=== PATIENT | female | born 1965 | race African-American/Black ===

== ENCOUNTER 2023-12-25 05:54 | Observation (INO) | payer BC ==
[2023-12-22 10:31] LABS: BASOPHILS % 0.5 % (0.0-1.0); EOSINOPHILS # (AUTO) 0.4 (0.0-0.4); EOSINOPHILS % 4.2 % (0.0-6.0); HEMATOCRIT 39.7 % (34.2-44.1); LYMPHOCYTES # (AUTO) 2.6 (1.0-3.2); LYMPHOCYTES % 29.5 % (18.0-39.1); MEAN CORPUSCULAR HGB CONC 32.7 g/dL (31-35); MEAN CORPUSCULAR VOLUME 94.7 fL (81-99); MONOCYTES # (AUTO) 0.7 (0.2-0.8); MONOCYTES % 8.2 % (4.4-11.3); NEUTROPHILS % 57.4 % (38.7-80.0); PLATELET COUNT 323 x10e3/uL (140-360); RED BLOOD COUNT 4.19 x10e6/uL (3.6-5.1); RED CELL DISTRIBUTION WIDTH 13.9 % (11.7-14.4); WHITE BLOOD COUNT 8.76 x10e3/uL (4.8-10.8)
[2023-12-22 10:49] LABS: ANION GAP 15.6 mmol/L (8-16); CALCIUM 9.3 mg/dL (8.4-10.2); CREATININE, SERUM 0.81 mg/dL (0.57-1.11); POTASSIUM 4.6 mmol/L (3.5-5.1)
[~2023-12-25 05:54] MED LIST: ALBUTEROL0.63 MG/3 INH; AMBIEN10 MG PO; BREO ELLIPTA INH; CLOPIDOGREL75 MG PO; CYCLOBENZAPRINE10 MG PO; FAMOTIDINE20 MG PO; GABAPENTIN300 MG PO; HYDRALAZINE HCL10 MG PO; HYDROCHLOROTHIA25 MG PO; ISOSORBIDE MONO30 MG PO; MONTELUKAST SOD10 MG PO; OMEPRAZOLE40 MG PO; PANTOPRAZOLE SO40 MG PO; SIMVASTATIN40 MG PO; ULTRAM50 MG PO; VERAPAMIL ER120 MG PO; ZOFRAN8 MG PO
[2023-12-25] MEDS: CELECOXIB 200 MG CAP ONE (06:38)
[2023-12-25] MEDS: LACTATED RINGER'S 1,000 ML ONE (06:38)
[2023-12-25] MEDS: CEFAZOLIN SODIUM 2 GM ONE (06:39)
[2023-12-25] MEDS: DEXAMETHASONE SOD PHOS 10 MG/1 ML VIAL ONE (06:39)
[2023-12-25] MEDS: GABAPENTIN 300 MG CAP ONE (06:39)
[2023-12-25] MEDS ORDERED: ROPIVACAINE 246.25 MG, EPINEPHRINE HCL 1:1000 1ML 0.5 MG, CLONIDINE HCL 0.08 MG, KETORO... INJ ONE (06:45)
[2023-12-25] MEDS ORDERED: Vancomycin IV 500 MG ONE (07:37)
[2023-12-25] MEDS ORDERED: TRANEXAMIC ACID 20 ML ONE (07:37)
[2023-12-25] MEDS ORDERED: FENTANYL CITRATE/PF 100MCG/2 ML INJ ONE ×2 (08:05→13:31)
[2023-12-25] MEDS ORDERED: MIDAZOLAM HCL 2 MG/2 ML VIAL ONE (08:06)
[2023-12-25] MEDS ORDERED: SODIUM CHLORIDE 0.9% 500ML 500 ML ONE (08:22)
[2023-12-25] MEDS ORDERED: ONDANSETRON HCL INJ 2MG/ML 2ML 2 MG/ML VIAL IV PRN (09:45)
[2023-12-25] MEDS ORDERED: DIPHENHYDRAMINE HCL INJ 50 MG/ML VIAL IV PRN (09:45)
[2023-12-25] MEDS ORDERED: SODIUM CHLORIDE 0.9% 1000ML 1,000 ML IV SCH (09:45)
[2023-12-25] MEDS ORDERED: DOCUSATE SODIUM 100 MG CAP PO PRN (09:45)
[2023-12-25] MEDS ORDERED: HYDROCODONE/APAP 7.5MG-325MG 1 EA TAB PO PRN (09:45)
[2023-12-25] MEDS: FENTANYL CITRATE/PF 100MCG/2 ML INJ ONE (10:29)
[2023-12-25] MEDS ORDERED: HYDROCODONE/APAP 5MG-325MG TAB PO ONE (11:25)
[2023-12-25] MEDS: HYDROCODONE/APAP 5MG-325MG TAB PO PRN (11:25)
[2023-12-25] MEDS ORDERED: HYDROCODONE/APAP 5MG-325MG TAB ONE (11:30)
[2023-12-25] MEDS ORDERED: SODIUM CHLORIDE 0.9% 100 ML ONE (12:05)
[2023-12-25] MEDS ORDERED: METHOCARBAMOL 100MG/1ML 10ML VIAL ONE (12:36)
[2023-12-25] MEDS ORDERED: FAMOTIDINE 20 MG/2 ML VIAL IV ONE (12:36)
[2023-12-25] MEDS ORDERED: ACETAMINOPHEN 1000 MG/100 ML IV ONE (12:36)
[2023-12-25] MEDS ORDERED: SEVOFLURANE INHAL SOLN 250 ML PEN BTL ONE (12:36)
[2023-12-25] MEDS ORDERED: DEXAMETHASONE SOD PHOS INJ 4 MG/ML SDV ONE (12:36)
[2023-12-25] MEDS ORDERED: PROPOFOL IV EMULSION 10 MG/ML 20 ML VIAL ONE (12:36)
[2023-12-25] MEDS ORDERED: ONDANSETRON HCL INJ 2MG/ML 2ML 2 MG/ML VIAL ONE (12:36)
[2023-12-25] MEDS ORDERED: DEXMEDETOMIDINE HCL 200 MCG/2 ML VIAL ONE (12:36)
[2023-12-25] MEDS ORDERED: LIDOCAINE HCL 2% LOCAL INJ 5 ML SDV VIAL INJ ONE (12:36)
[2023-12-25 13:00] VITALS: BP 154/88; PULSE 84; RESP 16; O2SAT 96
[2023-12-25] MEDS ORDERED: ROPIVACAINE 0.5% 5 MG/ML 30 ML SDV ONE (13:41)
[2023-12-25] MEDS ORDERED: DEXAMETHASONE SOD PHOS 10 MG/1 ML VIAL ONE (13:41)
[2023-12-25] MEDS ORDERED: CELECOXIB 100 MG CAP PO SCH (17:00)
[2023-12-25] MEDS ORDERED: ASPIRIN 325 MG TAB PO SCH (17:00)
[2023-12-26] MEDS ORDERED: ACETAMINOPHEN 1000 MG/100 ML IV PRN (09:45)
== END 2023-12-25 13:10 | disposition home health service (06) ==
LOC: OR 05:54 → PACU V 09:33
PROVIDERS: ADMIT Specialist; ATTEND Specialist
DX: M17.12 Unilateral primary osteoarthritis, left knee (principal); I11.9 Hypertensive heart disease without heart failure; I25.10 Atherosclerotic heart disease of native coronary artery without angina pectoris; E78.5 Hyperlipidemia, unspecified; I25.2 Old myocardial infarction; E11.51 Type 2 diabetes mellitus with diabetic peripheral angiopathy without gangrene; J45.909 Unspecified asthma, uncomplicated; G47.33 Obstructive sleep apnea (adult) (pediatric); Z01.812 Encounter for preprocedural laboratory examination; Z01.810 Encounter for preprocedural cardiovascular examination; Z86.73 Personal history of transient ischemic attack (TIA), and cerebral infarction without residual deficits; Z79.899 Other long term (current) drug therapy; Z79.02 Long term (current) use of antithrombotics/antiplatelets
CPT/HCPCS: 27447; 36415; 71046; 73560; 80048; 85025; 86850; 86900; 97116; 97161; 97530; C1713 ×2; C1776 ×3; G0378; J0131; J0171; J0690; J1100 ×2; J1885; J2001; J2250; J2405; J2704; J2795; J2800; J3010; J3370; J7040; J7050; J7121

== ENCOUNTER 2024-02-22 09:00 | Outpatient (RCR) | payer BC | END 2024-02-25 | LOC: PT 09:00 | PROVIDERS: ATTEND Physician Assistant | DX: Z47.1 Aftercare following joint replacement surgery (principal); Z96.652 Presence of left artificial knee joint; M25.562 Pain in left knee; M25.662 Stiffness of left knee, not elsewhere classified; M62.81 Muscle weakness (generalized); R26.2 Difficulty in walking, not elsewhere classified; Z91.81 History of falling ==

== ENCOUNTER 2024-03-15 09:00 | Outpatient (RCR) | payer BC | END 2024-03-27 | LOC: PT 09:00 | PROVIDERS: ATTEND Physician Assistant | DX: Z47.1 Aftercare following joint replacement surgery (principal); Z96.652 Presence of left artificial knee joint; M25.562 Pain in left knee; M25.662 Stiffness of left knee, not elsewhere classified; M62.81 Muscle weakness (generalized); R26.2 Difficulty in walking, not elsewhere classified; Z91.81 History of falling ==

== ENCOUNTER 2024-03-28 07:41 | Outpatient (RCR) | payer BC | END 2024-04-27 | LOC: PT 07:41 | PROVIDERS: ATTEND Physician Assistant | DX: Z47.1 Aftercare following joint replacement surgery (principal); Z96.652 Presence of left artificial knee joint; M25.562 Pain in left knee; M25.662 Stiffness of left knee, not elsewhere classified; M62.81 Muscle weakness (generalized); R26.2 Difficulty in walking, not elsewhere classified ==